=== PATIENT | female | born 1995 | race Caucasian/White ===

== ENCOUNTER 2018-01-19 17:08 | Emergency (ER) | payer OTHER, BC ==
[~2018-01-19] VITALS: Ht 170.2 cm; Wt 64.4 kg
[~2018-01-19 17:08] MED LIST: KEFLEX500 MG PO; NOHOMEMEDICATIONS; ONDANSETRON HCL4 M2 PO; REGLAN 10 MG TA10 MG PO; ZANTAC 150MG T150 MG PO
[2018-01-19 17:18] VITALS: BP 153/91
[2018-01-19] MEDS ORDERED: KEFLEX500 M1 PO (17:20)
== END 2018-01-19 17:37 | disposition home or self-care (01) ==
LOC: M.ERS 17:08
DX: S61.011A Laceration without foreign body of right thumb without damage to nail, initial encounter (principal); W45.8XXA Other foreign body or object entering through skin, initial encounter; Y93.89 Activity, other specified; Y92.89 Other specified places as the place of occurrence of the external cause; Y99.8 Other external cause status